=== PATIENT | female | born 1970 | race Two or more races ===

== ENCOUNTER 2022-06-23 15:53 | Emergency (ER) | payer OTHER ==
[~2022-06-23] VITALS: Ht 152.4 cm; Wt 72.6 kg
[2022-06-23] MEDS ORDERED: DICLOFENAC SODI75 MG PO (21:33)
== END 2022-06-23 21:51 | disposition home or self-care (01) ==
LOC: ER 15:53
DX: R51.9 Headache, unspecified (principal)

== ENCOUNTER 2022-10-22 16:46 | Emergency (ER) | payer OTHER ==
[~2022-10-22] VITALS: Ht 152.4 cm; Wt 70.3 kg
[~2022-10-22 16:46] MED LIST: DICLOFENAC SODI75 MG PO
[2022-10-22] MEDS ORDERED: PEPCID AC20 MG PO (22:42)
[2022-10-22] MEDS ORDERED: OMEPRAZOLE MAGN20 MG PO (22:42)
== END 2022-10-22 22:51 | disposition home or self-care (01) ==
LOC: ER 16:46
DX: R10.9 Unspecified abdominal pain (principal); Z20.822 Contact with and (suspected) exposure to COVID-19; Z88.9 Allergy status to unspecified drugs, medicaments and biological substances; Z88.8 Allergy status to other drugs, medicaments and biological substances
CPT/HCPCS: 36415; 74177; Q9965

== ENCOUNTER 2022-10-27 04:42 | Emergency (ER) | payer OTHER ==
[~2022-10-27] VITALS: Ht 152.4 cm; Wt 70.3 kg
[~2022-10-27 04:42] MED LIST changes: +OMEPRAZOLE MAGN20 MG PO; +PEPCID AC20 MG PO
== END 2022-10-27 09:20 | disposition home or self-care (01) ==
LOC: ER 04:42
DX: U07.1 COVID-19 (principal); R53.81 Other malaise; Z88.9 Allergy status to unspecified drugs, medicaments and biological substances; Z88.8 Allergy status to other drugs, medicaments and biological substances

== ENCOUNTER 2022-11-26 13:12 | Emergency (ER) | payer OTHER ==
[~2022-11-26] VITALS: Ht 152.4 cm; Wt 70.3 kg
[2022-11-26] MEDS ORDERED: DICLOFENAC SODI75 MG PO (14:44)
[2022-11-26] MEDS ORDERED: MACRODANTIN100 M1 PO (14:44)
== END 2022-11-26 14:47 | disposition home or self-care (01) ==
LOC: ER 13:12
DX: M54.9 Dorsalgia, unspecified (principal); N39.0 Urinary tract infection, site not specified; Z91.013 Allergy to seafood; Z88.3 Allergy status to other anti-infective agents